=== PATIENT | female | born 2000 | race Caucasian/White ===

== ENCOUNTER 2021-02-20 14:00 | Outpatient (CLI) | payer OTHER ==
[~2021-02-20] VITALS: Ht 149.9 cm; Wt 51.7 kg
[2021-02-20 14:19] VITALS: BP 124/74
[2021-02-20] MEDS ORDERED: ACET-907 PO (14:38)
[2021-02-20] MEDS ORDERED: ACET325C5 PO (14:38)
[2021-02-20] MEDS ORDERED: PRENTAB9 PO (14:38)
[2021-02-20 15:04] VITALS: BP 106/58
== END 2021-02-20 14:45 | disposition home or self-care (01) ==
LOC: M LDO 14:00
PROVIDERS: ATTEND Obstetrics & Gynecology
DX: O26.892 Other specified pregnancy related conditions, second trimester (principal); N89.8 Other specified noninflammatory disorders of vagina; R25.2 Cramp and spasm; Z3A.25 25 weeks gestation of pregnancy
CPT/HCPCS: 59025; G0378; G0463

== ENCOUNTER 2021-03-26 19:40 | Outpatient (CLI) ==
[~2021-03-26] VITALS: Ht 149.9 cm; Wt 54.2 kg
[~2021-03-26 19:40] MED LIST: ACET-907 PO; ACET325C5 PO; PRENTAB9 PO
[2021-03-26 20:09] VITALS: BP 131/81
== END 2021-03-26 22:47 | disposition home or self-care (01) ==
LOC: M LDO 19:40
PROVIDERS: ATTEND Obstetrics & Gynecology
DX: O60.03 Preterm labor without delivery, third trimester (principal); O09.33 Supervision of pregnancy with insufficient antenatal care, third trimester; Z3A.30 30 weeks gestation of pregnancy
CPT/HCPCS: 59025; 81001; 87086; G0378; G0463

== ENCOUNTER → 2021-04-01 | Outpatient (CLI) | payer OTHER ==
[2021-04-01 12:53] LABS: BASO % 0.3 % (0.0-1.0); EOS % 0.1 % (0.0-3.0); HEMATOCRIT 38.2 % (36.0-47.0); HEMOGLOBIN 12.7 g/dl (12.0-15.5); LYMPH # 1.3 10^3/uL (1.5-5.0); LYMPH % 11.8 % (24.0-44.0); MEAN CORPUSCULAR HEMOGLOBIN 29.3 pg (27.0-33.0); MEAN CORPUSCULAR HGB CONC 33.2 g/dl (32.0-36.5); MEAN CORPUSCULAR VOLUME 88.2 fl (80.0-96.0); MONO # 0.3 10^3/uL (0.0-0.8); MONO % 2.5 % (2.0-8.0); NEUTROPHILS # 9.5 10^3/uL (1.5-8.5); NEUTROPHILS % 83.8 % (36.0-66.0); PLATELET COUNT, AUTOMATED 374 10^3/uL (150-450); RED BLOOD COUNT 4.33 10^6/uL (4.00-5.40); WHITE BLOOD COUNT 11.3 10^3/uL (4.0-10.0)
[2021-04-01 15:29] LABS: GLUCOSE CHALLENGE TEST 1 HOUR 143 MG/DL (LESS THAN 140)
[2021-04-02 11:27] LABS: HIV 1&2 SCREEN CENTAUR NEGATIVE (NEGATIVE)
== END ==
LOC: M LAB 10:36
PROVIDERS: ATTEND Obstetrics & Gynecology
DX: Z36.9 Encounter for antenatal screening, unspecified (principal); Z3A.28 28 weeks gestation of pregnancy

== ENCOUNTER 2021-05-28 12:48 | Inpatient (IN) | payer OTHER ==
[2021-05-28] VITALS (28 sets, daily range): BP systolic 91–144; BP diastolic 52–87
[~2021-05-28] VITALS: Ht 149.9 cm; Wt 57.8 kg
[2021-05-28] MEDS ORDERED: TUMS500C PO (13:08)
[2021-05-28] MEDS ORDERED: LACTATED RINGER'S 1000 ML IV STA (13:49)
[2021-05-28] MEDS ORDERED: OXYTOCIN DRIP 30 UNITS in IV 1 EA IV PRN ×4 (13:50)
[2021-05-28 14:14] LABS: HEMATOCRIT 35.9 % (36.0-47.0); HEMOGLOBIN 11.6 g/dl (12.0-15.5); MEAN CORPUSCULAR HEMOGLOBIN 26.9 pg (27.0-33.0); MEAN CORPUSCULAR HGB CONC 32.3 g/dl (32.0-36.5); MEAN CORPUSCULAR VOLUME 83.1 fl (80.0-96.0); PLATELET COUNT, AUTOMATED 335 10^3/uL (150-450); RED BLOOD COUNT 4.32 10^6/uL (4.00-5.40); WHITE BLOOD COUNT 15.7 10^3/uL (4.0-10.0)
[2021-05-28] MEDS ORDERED: FENTANYL 2MCG/ML ROPIVACAINE 0.2% IN 0.9% NACL 100ML IVBAG As Ordered ONE (14:30)
[2021-05-28] MEDS ORDERED: HOME MED LIST COMPLETE! XX SCH (16:00)
[2021-05-28] MEDS ORDERED: LACTATED RINGER'S 1000 ML IV PRN (16:20)
[2021-05-28] MEDS ORDERED: ONDANSETRON 4MG/2ML VIAL IV PRN ×2 (16:20→21:15)
[2021-05-28] MEDS ORDERED: diphenhydrAMINE 50MG/ML VIAL (J1200) IV PRN (16:20)
[2021-05-28] MEDS ORDERED: REFRIGERATOR IV KEYS XX PRN (16:20)
[2021-05-28] MEDS ORDERED: EPIDURAL COMMENT XX SCH (16:20)
[2021-05-28] MEDS ORDERED: EPIDURAL/PCA KEYS XX PRN (16:20)
[2021-05-28] MEDS ORDERED: FENTANYL/ROPIVACAINE/NACL BAG 100 ML EPIDURAL SCH (16:20)
[2021-05-28] MEDS ORDERED: NALOXONE INJ 0.4MG/1ML VIAL (J2310 PER 1MG) IV PRN (16:20)
[2021-05-28] MEDS: LR 1,000 ML IV SCH ×2 (16:28→18:36)
[2021-05-28] MEDS: ePHEDrine SULFATE 25 MG/5 ML(5MG/ML) SYRINGE IV PRN ×3 (18:53→19:01)
[2021-05-28] MEDS ORDERED: AMPICILLIN SOD 2 GM in D5W MINI-BAG PLUS 100 ML IV SCH (20:00)
[2021-05-28] MEDS ORDERED: D5W IV ONE (21:00)
[2021-05-28] MEDS ORDERED: GENTAMICIN IV ONE (21:00)
[2021-05-28 21:04] LABS: CORD GAS ABE V -8.8; CORD GAS HCO3 V 17.6 MEQ/L; CORD GAS O2 SAT V 56.7 %; CORD GAS PCO2 V 39.6 mmHg; CORD GAS PH V 7.266 UNITS; CORD GAS PO2 V 26.6 mmHg; CORD GAS SBC V 16.7 MEQ/L; CORD GAS TCO2 V 18.8 MEQ/L
[2021-05-28 21:06] LABS: CORD GAS ABE A -11.4; CORD GAS HCO3 A 17.1 MEQ/L; CORD GAS O2 SAT A 78.4 %; CORD GAS PH A 7.169 UNITS; CORD GAS PO2 A 42.8 mmHg; CORD GAS SBC A 15.3 MEQ/L; CORD GAS TCO2 A 18.5 MEQ/L
[2021-05-28] MEDS ORDERED: DIBUCAINE 1% OINTMENT 30GM TOP PRN (21:15)
[2021-05-28] MEDS ORDERED: PROMETHAZINE 25 MG TAB PO PRN (21:15)
[2021-05-28] MEDS ORDERED: RHOGAM 300 MCG (1500 IU) INJ (J2790) IM SCH (21:15)
[2021-05-28] MEDS: ACETAMINOPHEN 500 MG TAB PO SCH (21:15)
[2021-05-28] MEDS ORDERED: LR 1,000 ML IV SCH (21:15)
[2021-05-28] MEDS ORDERED: MEASLES,MUMPS,RUBELLA VACCINE INJ (MMR-II) (90707) SC SCH (21:15)
[2021-05-28] MEDS: IBUPROFEN 800 MG TAB PO SCH (22:53)
[2021-05-29] MEDS: ACETAMINOPHEN 500 MG TAB PO SCH ×5 (03:15→21:15)
[2021-05-29] MEDS: IBUPROFEN 800 MG TAB PO SCH ×3 (05:55→22:16)
[2021-05-29 06:00] VITALS: BP 111/75
[2021-05-29 07:30] LABS: HEMATOCRIT 31.8 % (36.0-47.0); HEMOGLOBIN 10.3 g/dl (12.0-15.5); MEAN CORPUSCULAR HEMOGLOBIN 27.2 pg (27.0-33.0); MEAN CORPUSCULAR HGB CONC 32.4 g/dl (32.0-36.5); MEAN CORPUSCULAR VOLUME 84.1 fl (80.0-96.0); PLATELET COUNT, AUTOMATED 297 10^3/uL (150-450); RED BLOOD COUNT 3.78 10^6/uL (4.00-5.40)
[2021-05-29 09:00] VITALS: BP 111/75
[2021-05-29] MEDS: DOCUSATE SODIUM 100MG CAPSULE PO SCH ×2 (10:17→22:16)
[2021-05-29] MEDS: PRENATAL VITAMINS CHEWABLE TABLET PO SCH (10:17)
[2021-05-29 17:59] VITALS: BP 113/72
[2021-05-30] MEDS: ACETAMINOPHEN 500 MG TAB PO SCH ×2 (03:54→09:23)
[2021-05-30 05:17] VITALS: BP 113/62
[2021-05-30] MEDS: IBUPROFEN 800 MG TAB PO SCH (06:24)
[2021-05-30] MEDS ORDERED: COLA100C5 PO (07:24)
[2021-05-30] MEDS ORDERED: IBUP80TA PO (07:24)
[2021-05-30] MEDS ORDERED: PRENCHW PO (07:24)
[2021-05-30] MEDS: PRENATAL VITAMINS CHEWABLE TABLET PO SCH (09:22)
[2021-05-30] MEDS: DOCUSATE SODIUM 100MG CAPSULE PO SCH (09:27)
== END 2021-05-30 09:30 | disposition home or self-care (01) | DRG 807 ==
LOC: M LDO 12:48 → M LDI 13:45 → M OBS 23:25
PROVIDERS: ADMIT Obstetrics & Gynecology; ATTEND Obstetrics & Gynecology
PROC: 10E0XZZ Delivery of Products of Conception, External Approach (ICD-10-PCS; principal; 2021-05-28)
DX: O41.1230 Chorioamnionitis, third trimester, not applicable or unspecified (principal); Z37.0 Single live birth; O69.82X0 Labor and delivery complicated by other cord entanglement, without compression, not applicable or unspecified; O76 Abnormality in fetal heart rate and rhythm complicating labor and delivery; Z3A.39 39 weeks gestation of pregnancy

== ENCOUNTER → 2022-03-29 | Outpatient (CLI) | payer OTHER ==
[~2022-03-29] MED LIST changes: +COLA100C5 PO; +IBUP80TA PO; +PRENCHW PO; +TUMS500C PO
== END ==
LOC: M WHC 09:29
PROVIDERS: ATTEND Advanced Practice Midwife
DX: Z34.92 Encounter for supervision of normal pregnancy, unspecified, second trimester (principal); Z3A.19 19 weeks gestation of pregnancy

== ENCOUNTER → 2022-05-04 | Outpatient (CLI) | payer OTHER | LOC: M RAD 12:36 | PROVIDERS: ATTEND Advanced Practice Midwife | DX: Z34.90 Encounter for supervision of normal pregnancy, unspecified, unspecified trimester (principal); Z3A.25 25 weeks gestation of pregnancy ==

== ENCOUNTER 2022-06-28 21:53 | Outpatient (CLI) | payer OTHER ==
[~2022-06-28] VITALS: Ht 149.9 cm; Wt 60.5 kg
[2022-06-28 22:13] VITALS: BP 109/68
[2022-06-28] MEDS ORDERED: VITA100T59 PO (22:16)
[2022-06-28] MEDS ORDERED: IRON15CH PO (22:16)
[2022-06-28] MEDS ORDERED: HOME MED LIST COMPLETE! XX SCH (22:20)
[2022-06-28 22:57] VITALS: BP 116/71
[2022-06-28] MEDS ORDERED: NITROFURANTOIN (MACROBID) 100 MG CAP PO ONE (23:15)
== END 2022-06-29 00:28 | disposition home or self-care (01) ==
LOC: M LDO 21:53
PROVIDERS: ATTEND Obstetrics & Gynecology
DX: O36.8130 Decreased fetal movements, third trimester, not applicable or unspecified (principal); Z3A.32 32 weeks gestation of pregnancy; O23.593 Infection of other part of genital tract in pregnancy, third trimester; O32.1XX0 Maternal care for breech presentation, not applicable or unspecified; Z91.040 Latex allergy status
CPT/HCPCS: 59025; 76815; 81001; 87086; G0463

== ENCOUNTER 2022-08-14 01:28 | Inpatient (IN) | payer OTHER ==
[~2022-08-14] VITALS: Ht 149.9 cm; Wt 63.7 kg
[2022-08-14] VITALS (54 sets, daily range): BP systolic 92–155; BP diastolic 52–88; O2SAT 96–97
[~2022-08-14 01:28] MED LIST changes: +IRON15CH PO; +VITA100T59 PO
[2022-08-14] MEDS ORDERED: HOME MED LIST COMPLETE! XX SCH (01:45)
[2022-08-14] MEDS ORDERED: PENICILLIN G POTASSIUM 5 MU IV 5 MU in D5W MINI-BAG PLUS 100 ML IV STA (02:08)
[2022-08-14] MEDS ORDERED: LACTATED RINGER'S 1000 ML IV STA (02:08)
[2022-08-14] MEDS ORDERED: CARBOPROST TROMETHAMINE 250 MCG/ML AMP IM PRN (02:10)
[2022-08-14] MEDS ORDERED: OXYTOCIN INJ 10UNITS/ML 1ML VIAL IM PRN (02:10)
[2022-08-14] MEDS ORDERED: TRANEXAMIC ACID INJection 1,000 MG in NS 100 ML IV PRN (02:10)
[2022-08-14] MEDS ORDERED: METHYLERGONOVINE MALEATE 0.2MG/ML 1ML VIAL IM PRN (02:10)
[2022-08-14] MEDS ORDERED: LIDOCAINE 1% MDV 20ML VIAL INFIL PRN (02:10)
[2022-08-14] MEDS ORDERED: OXYTOCIN DRIP 30 UNITS in IV 1 EA IV PRN ×6 (02:10)
[2022-08-14] MEDS ORDERED: NALBUPHINE HCL 10 MG/ML 1ML AMP IV PRN (02:15)
[2022-08-14] MEDS ORDERED: PROMETHAZINE 25MG/ML 1ML VIAL IV PRN (02:15)
[2022-08-14 02:48] LABS: BASO % 0.2 % (0.0-1.0); EOS # 0.1 10^3/uL (0.0-0.5); EOS % 0.6 % (0.0-3.0); HEMATOCRIT 40.8 % (36.0-47.0); HEMOGLOBIN 13.7 g/dl (12.0-15.5); LYMPH # 1.9 10^3/uL (1.5-5.0); LYMPH % 17.7 % (24.0-44.0); MEAN CORPUSCULAR HEMOGLOBIN 28.3 pg (27.0-33.0); MEAN CORPUSCULAR HGB CONC 33.6 g/dl (32.0-36.5); MEAN CORPUSCULAR VOLUME 84.3 fl (80.0-96.0); MONO % 8.9 % (2.0-8.0); NEUTROPHILS # 7.8 10^3/uL (1.5-8.5); NEUTROPHILS % 71.6 % (36.0-66.0); PLATELET COUNT, AUTOMATED 308 10^3/uL (150-450); RED BLOOD COUNT 4.84 10^6/uL (4.00-5.40); WHITE BLOOD COUNT 10.9 10^3/uL (4.0-10.0)
[2022-08-14] MEDS ORDERED: NALOXONE INJ 0.4MG/1ML VIAL IV PRN (03:40)
[2022-08-14] MEDS ORDERED: diphenhydrAMINE 50MG/ML VIAL IV PRN (03:40)
[2022-08-14] MEDS ORDERED: LR 500 ML IV PRN (03:40)
[2022-08-14] MEDS ORDERED: EPIDURAL/PCA KEYS XX PRN (03:40)
[2022-08-14] MEDS ORDERED: ONDANSETRON 4MG 2ML VIAL IV PRN (03:40)
[2022-08-14] MEDS: LR 1,000 ML IV SCH ×2 (03:41→11:34)
[2022-08-14] MEDS: CALCIUM CARBONATE 500 MG CHEW U/D PO PRN ×3 (04:26→11:33)
[2022-08-14] MEDS: FENTANYL/ROPIVACAINE/NACL BAG 100 ML EPIDURAL SCH ×2 (04:28→11:30)
[2022-08-14] MEDS: ePHEDrine SULFATE 25 MG/5 ML(5MG/ML) SYRINGE IVP PRN ×3 (04:45→04:55)
[2022-08-14] MEDS: PEN G POT 3,000,000 UNIT/50 ML 3,000,000 UNIT in IV 1 EA IV SCH ×2 (06:48→11:31)
[2022-08-14] MEDS ORDERED: IBUPROFEN 600MG TAB PO PRN (12:10)
[2022-08-14] MEDS ORDERED: ACETAMINOPHEN TAB 650MG DOSE (2X325MG) PO PRN (12:10)
[2022-08-14] MEDS ORDERED: METHYLERGONOVINE MALEATE 0.2 MG TAB PO PRN (12:10)
[2022-08-14] MEDS ORDERED: ACETAMINOPHEN 500 MG TAB PO PRN (12:10)
[2022-08-14] MEDS ORDERED: RHOGAM 300MCG (1500IU) INJ IM SCH (12:10)
[2022-08-14] MEDS ORDERED: ANUSOL HC CREAM 30GM TOP PRN (12:10)
[2022-08-14] MEDS ORDERED: DIBUCAINE 1% OINTMENT 30GM TOP PRN (12:10)
[2022-08-14] MEDS ORDERED: DOCUSATE SODIUM 100MG CAPSULE PO PRN (12:10)
[2022-08-14] MEDS ORDERED: OXYTOCIN DRIP 30 UNITS in IV 1 EA IV SCH ×2 (12:30→13:00)
[2022-08-14] MEDS: IBUPROFEN 800 MG TAB PO PRN (13:57)
[2022-08-14] MEDS: FAMOTIDINE 20 MG TAB PO SCH ×2 (13:57→20:09)
[2022-08-14] MEDS ORDERED: METHYLERGONOVINE MALEATE 0.2MG/ML 1ML VIAL IM ONE (14:45)
[2022-08-15 06:00] VITALS: BP 114/74; O2SAT 97
[2022-08-15 06:21] LABS: HEMATOCRIT 34.1 % (36.0-47.0); HEMOGLOBIN 11.1 g/dl (12.0-15.5); MEAN CORPUSCULAR HEMOGLOBIN 28.3 pg (27.0-33.0); MEAN CORPUSCULAR HGB CONC 32.6 g/dl (32.0-36.5); PLATELET COUNT, AUTOMATED 219 10^3/uL (150-450); RED BLOOD COUNT 3.92 10^6/uL (4.00-5.40); WHITE BLOOD COUNT 14.9 10^3/uL (4.0-10.0)
[2022-08-15] MEDS: FAMOTIDINE 20 MG TAB PO SCH (08:23)
[2022-08-15] MEDS ORDERED: PRENATAL VITAMINS CHEWABLE TABLET PO SCH (09:00)
[2022-08-15] MEDS: IBUPROFEN 800 MG TAB PO PRN (11:04)
[2022-08-16] MEDS ORDERED: MEASLES,MUMPS,RUBELLA VACCINE INJ (MMR-II) SC.IMMUN ONE (09:00)
== END 2022-08-15 16:40 | disposition home or self-care (01) | DRG 807 ==
LOC: M LDO 01:28 → M LDI 02:12 → M OBS 15:30
PROVIDERS: ADMIT Obstetrics & Gynecology; ATTEND Obstetrics & Gynecology
PROC: 10E0XZZ Delivery of Products of Conception, External Approach (ICD-10-PCS; principal; 2022-08-14)
DX: O69.82X0 Labor and delivery complicated by other cord entanglement, without compression, not applicable or unspecified (principal); Z37.0 Single live birth; O99.824 Streptococcus B carrier state complicating childbirth; Z3A.39 39 weeks gestation of pregnancy

== ENCOUNTER 2023-07-01 18:53 | Emergency (ER) | payer OTHER ==
[~2023-07-01] VITALS: Ht 149.9 cm; Wt 58.2 kg
[2023-07-01 18:54] VITALS: TEMP 97.6
[2023-07-01] MEDS: KETOROLAC 30 MG/ML 1ML VIAL IV ONE (19:33)
[2023-07-01] MEDS: ONDANSETRON 4MG 2ML VIAL IV ONE (19:33)
[2023-07-01] MEDS: NS 1,000 ML IV ONE (19:33)
[2023-07-01 19:39] LABS: BASO % 0.2 % (0.0-1.0); EOS % 0.2 % (0.0-3.0); HEMATOCRIT 44.6 % (36.0-47.0); HEMOGLOBIN 15.4 g/dl (12.0-15.5); LYMPH # 1.4 10^3/uL (1.5-5.0); LYMPH % 14.7 % (24.0-44.0); MEAN CORPUSCULAR HEMOGLOBIN 29.5 pg (27.0-33.0); MEAN CORPUSCULAR HGB CONC 34.5 g/dl (32.0-36.5); MEAN CORPUSCULAR VOLUME 85.4 fl (80.0-96.0); MONO # 0.3 10^3/uL (0.0-0.8); MONO % 3.3 % (2.0-8.0); NEUTROPHILS # 7.9 10^3/uL (1.5-8.5); NEUTROPHILS % 81.4 % (36.0-66.0); PLATELET COUNT, AUTOMATED 386 10^3/uL (150-450); RED BLOOD COUNT 5.22 10^6/uL (4.00-5.40); WHITE BLOOD COUNT 9.7 10^3/uL (4.0-10.0)
[2023-07-01 20:06] LABS: HCG, SERUM QUALITATIVE NEGATIVE (NEGATIVE); LIPASE 26 U/L (12-53)
[2023-07-01 20:08] LABS: ALBUMIN 4.1 G/DL (3.2-5.2); ALKALINE PHOSPHATASE 64 U/L (46-116); ALT/SGPT 18 U/L (7.0-40); AST/SGOT 14 U/L (<34); BILIRUBIN,DIRECT 0.2 MG/DL (<0.4); BILIRUBIN,TOTAL 0.6 MG/DL (0.3-1.2); BLOOD UREA NITROGEN 12 MG/DL (9-23); CALCIUM LEVEL 9.3 MG/DL (8.5-10.1); CARBON DIOXIDE LEVEL 25 MMOL/L (20-31); CHLORIDE LEVEL 109 MMOL/L (98-107); CREATININE FOR GFR 0.58 MG/DL (0.55-1.30); GLOMERULAR FILTRATION RATE > 60.0 (>60); GLUCOSE, FASTING 87 MG/DL (60-100); SODIUM LEVEL 143 MMOL/L (136-145); TOTAL PROTEIN 6.9 G/DL (5.7-8.2)
[2023-07-01] MEDS: METOCLOPRAMIDE INJ 10MG/2ML VIAL IV ONE (22:12)
[2023-07-02] MEDS ORDERED: ONDA4TAB6 PO (00:04)
[2023-07-02 00:12] VITALS: BP 110/68; O2SAT 100
== END 2023-07-02 00:14 | disposition home or self-care (01) ==
LOC: M ED 18:53
DX: R11.2 Nausea with vomiting, unspecified (principal); N94.6 Dysmenorrhea, unspecified; R10.2 Pelvic and perineal pain; Z91.040 Latex allergy status; Z79.83 Long term (current) use of bisphosphonates
CPT/HCPCS: 74018; 76830; 76856; 80048; 80076; 81001; 83690; 84703; 85025; 87086; 93976; 96361; 96374; 96375; 99284; J1885; J2405; J2765

== ENCOUNTER 2023-07-05 15:49 | Emergency (ER) | payer OTHER ==
[~2023-07-05] VITALS: Ht 149.9 cm; Wt 59.2 kg
[~2023-07-05 15:49] MED LIST changes: +ONDA4TAB6 PO
[2023-07-05 17:33] LABS: BILIRUBIN,DIRECT 0.2 MG/DL (<0.4); BILIRUBIN,TOTAL 0.5 MG/DL (0.3-1.2); TOTAL PROTEIN 6.9 G/DL (5.7-8.2)
[2023-07-05 17:35] LABS: BASO % 0.6 % (0.0-1.0); EOS # 0.1 10^3/uL (0.0-0.5); EOS % 1.8 % (0.0-3.0); HEMATOCRIT 44.3 % (36.0-47.0); HEMOGLOBIN 15.4 g/dl (12.0-15.5); LYMPH % 29.8 % (24.0-44.0); MEAN CORPUSCULAR HEMOGLOBIN 30.2 pg (27.0-33.0); MEAN CORPUSCULAR HGB CONC 34.8 g/dl (32.0-36.5); MEAN CORPUSCULAR VOLUME 86.9 fl (80.0-96.0); MONO # 0.4 10^3/uL (0.0-0.8); MONO % 6.1 % (2.0-8.0); NEUTROPHILS # 4.2 10^3/uL (1.5-8.5); NEUTROPHILS % 61.4 % (36.0-66.0); PLATELET COUNT, AUTOMATED 408 10^3/uL (150-450); WHITE BLOOD COUNT 6.8 10^3/uL (4.0-10.0)
[2023-07-05] MEDS: ACETAMINOPHEN 500 MG TAB PO ONE (19:19)
[2023-07-05] MEDS: KETOROLAC 30 MG/ML 1ML VIAL IV ONE (19:20)
[2023-07-05] MEDS ORDERED: NITR-67 PO (19:36)
[2023-07-05] MEDS: NITROFURANTOIN (MACROBID) 100 MG CAP PO ONE (19:45)
[2023-07-05 19:48] VITALS: BP 115/77; TEMP 97.6; O2SAT 99
== END 2023-07-05 20:01 | disposition home or self-care (01) ==
LOC: M ED 15:49
DX: N39.0 Urinary tract infection, site not specified (principal); N83.209 Unspecified ovarian cyst, unspecified side; Z91.040 Latex allergy status; Z79.83 Long term (current) use of bisphosphonates; Z79.2 Long term (current) use of antibiotics
CPT/HCPCS: 80047; 80076; 81001; 83690; 84702; 85025; 87088; 96374; 99284; J1885

== ENCOUNTER 2023-07-16 10:34 | Emergency (ER) | payer OTHER ==
[~2023-07-16] VITALS: Ht 149.9 cm; Wt 57.9 kg
[~2023-07-16 10:34] MED LIST changes: +NITR-67 PO
[2023-07-16 11:37] LABS: BASO % 0.3 % (0.0-1.0); EOS # 0.1 10^3/uL (0.0-0.5); EOS % 0.8 % (0.0-3.0); HEMATOCRIT 42.6 % (36.0-47.0); HEMOGLOBIN 14.7 g/dl (12.0-15.5); LYMPH # 1.3 10^3/uL (1.5-5.0); LYMPH % 14.7 % (24.0-44.0); MEAN CORPUSCULAR HEMOGLOBIN 29.6 pg (27.0-33.0); MEAN CORPUSCULAR HGB CONC 34.5 g/dl (32.0-36.5); MEAN CORPUSCULAR VOLUME 85.9 fl (80.0-96.0); MONO # 0.5 10^3/uL (0.0-0.8); MONO % 5.3 % (2.0-8.0); NEUTROPHILS # 7.2 10^3/uL (1.5-8.5); NEUTROPHILS % 78.6 % (36.0-66.0); PLATELET COUNT, AUTOMATED 341 10^3/uL (150-450); RED BLOOD COUNT 4.96 10^6/uL (4.00-5.40); WHITE BLOOD COUNT 9.1 10^3/uL (4.0-10.0)
[2023-07-16 12:32] LABS: ALKALINE PHOSPHATASE 63 U/L (46-116); ALT/SGPT 20 U/L (7.0-40); AST/SGOT 14 U/L (<34); BILIRUBIN,DIRECT 0.2 MG/DL (<0.4); BILIRUBIN,TOTAL 0.7 MG/DL (0.3-1.2); BLOOD UREA NITROGEN 7 MG/DL (9-23); CALCIUM LEVEL 9.5 MG/DL (8.5-10.1); CARBON DIOXIDE LEVEL 28 MMOL/L (20-31); CHLORIDE LEVEL 107 MMOL/L (98-107); CREATININE FOR GFR 0.62 MG/DL (0.55-1.30); GLOMERULAR FILTRATION RATE > 60.0 (>60); GLUCOSE, FASTING 101 MG/DL (60-100); LIPASE 28 U/L (12-53); POTASSIUM SERUM 4.2 MMOL/L (3.5-5.1); SODIUM LEVEL 141 MMOL/L (136-145); TOTAL PROTEIN 6.7 G/DL (5.7-8.2)
[2023-07-16] MEDS: NS 1,000 ML IV ONE (12:48)
[2023-07-16] MEDS: ONDANSETRON 4MG 2ML VIAL IV ONE (12:49)
[2023-07-16 12:56] LABS: HCG, SERUM QUALITATIVE NEGATIVE (NEGATIVE)
[2023-07-16] MEDS: KETOROLAC 30 MG/ML 1ML VIAL IV ONE (14:27)
[2023-07-16] MEDS ORDERED: OMEP40CA4 PO (14:33)
[2023-07-16] MEDS ORDERED: ONDA4TAB6 PO (14:34)
[2023-07-16] MEDS: diphenhydrAMINE 12.5MG/5ML ELIXIR UDC PO ONE (14:35)
[2023-07-16] MEDS ORDERED: IBUP-1022 PO (14:36)
[2023-07-16 14:40] VITALS: BP 106/66; TEMP 96.2; O2SAT 98
== END 2023-07-16 14:48 | disposition home or self-care (01) ==
LOC: M ED 10:34
DX: K29.70 Gastritis, unspecified, without bleeding (principal); K21.9 Gastro-esophageal reflux disease without esophagitis; R11.2 Nausea with vomiting, unspecified; Z91.040 Latex allergy status; Z79.1 Long term (current) use of non-steroidal anti-inflammatories (NSAID); Z79.899 Other long term (current) drug therapy
CPT/HCPCS: 74176; 80048; 80076; 83690; 84703; 85025; 96361; 96374; 96375; 99284; J1885; J2405

== ENCOUNTER 2023-11-29 21:09 | Emergency (ER) | payer OTHER ==
[~2023-11-29] VITALS: Ht 149.9 cm; Wt 57.5 kg
[~2023-11-29 21:09] MED LIST changes: +IBUP-1022 PO; +OMEP40CA4 PO; +ONDA-282 PO; -ONDA4TAB6 PO
[2023-11-30 02:03] VITALS: BP 117/80; TEMP 98.6; O2SAT 99
== END 2023-11-30 03:30 | disposition left against medical advice (07) ==
LOC: M ED 21:09
DX: Z53.21 Procedure and treatment not carried out due to patient leaving prior to being seen by health care provider (principal)

== ENCOUNTER 2024-03-20 17:38 | Outpatient (CLI) | payer OTHER ==
[~2024-03-20] VITALS: Ht 149.9 cm; Wt 58.9 kg
[2024-03-20 17:55] VITALS: BP 114/69
[2024-03-20 19:15] VITALS: BP 108/64
[2024-03-20 19:20] LABS: KETONE, URINE AUTO RFX TRACE mg/dL (NEGATIVE); LEUKOCYTE ESTERASE UR AUTO RFX 3+ (NEGATIVE); MUCUS, URINE RFX SMALL (NEGATIVE); NITRITE, URINE AUTO RFX NEGATIVE (NEGATIVE); RBC, URINE AUTO RFX 3 /HPF (0-3); SQUAM EPITHELIAL CELL UR AURFX 22 /HPF (0-6); WBC, URINE AUTO RFX 18 /HPF (0-3)
== END 2024-03-20 19:25 | disposition home or self-care (01) ==
LOC: M LDO 17:38
PROVIDERS: ATTEND Advanced Practice Midwife
DX: O26.892 Other specified pregnancy related conditions, second trimester (principal); N89.8 Other specified noninflammatory disorders of vagina; Z3A.24 24 weeks gestation of pregnancy
CPT/HCPCS: 59025; 81001; 87086; G0463

== ENCOUNTER 2024-05-06 17:52 | Outpatient (CLI) | payer OTHER ==
[~2024-05-06] VITALS: Ht 149.9 cm; Wt 58.1 kg
[2024-05-06 18:07] VITALS: BP 113/72
[2024-05-06] MEDS: ONDANSETRON 4MG ORAL DISINTEGRATING TAB PO ONE (18:54)
== END 2024-05-06 20:00 | disposition home or self-care (01) ==
LOC: M LDO 17:52
PROVIDERS: ATTEND Advanced Practice Midwife
DX: O99.613 Diseases of the digestive system complicating pregnancy, third trimester (principal); O99.353 Diseases of the nervous system complicating pregnancy, third trimester; O09.299 Supervision of pregnancy with other poor reproductive or obstetric history, unspecified trimester; K52.9 Noninfective gastroenteritis and colitis, unspecified; G43.809 Other migraine, not intractable, without status migrainosus; Z88.5 Allergy status to narcotic agent; Z91.040 Latex allergy status; K42.9 Umbilical hernia without obstruction or gangrene; Z3A.30 30 weeks gestation of pregnancy
CPT/HCPCS: 59025; G0463

== ENCOUNTER 2024-06-07 19:34 | Outpatient (CLI) | payer OTHER ==
[~2024-06-07] VITALS: Ht 149.9 cm; Wt 62.4 kg
[2024-06-07 19:46] VITALS: BP 112/68
[2024-06-07] MEDS: LR 1,000 ML IV ONE (21:06)
[2024-06-07] MEDS: LR 1,000 ML IV SCH (21:07)
[2024-06-07 22:06] VITALS: BP 106/62
== END 2024-06-07 22:08 | disposition home or self-care (01) ==
LOC: M LDO 19:34
PROVIDERS: ATTEND Advanced Practice Midwife
DX: O47.03 False labor before 37 completed weeks of gestation, third trimester (principal); Z36.85 Encounter for antenatal screening for Streptococcus B; Z3A.35 35 weeks gestation of pregnancy
CPT/HCPCS: 59025; 87081; 96360; G0463

== ENCOUNTER 2024-07-01 11:27 | Outpatient (CLI) | payer OTHER ==
[~2024-07-01] VITALS: Ht 149.9 cm; Wt 62.1 kg
[2024-07-01 11:45] VITALS: BP 118/80
[2024-07-01 14:57] VITALS: BP 110/68
== END 2024-07-01 16:00 | disposition home or self-care (01) ==
LOC: M LDO 11:27
PROVIDERS: ATTEND Advanced Practice Midwife
DX: O47.1 False labor at or after 37 completed weeks of gestation (principal); O09.33 Supervision of pregnancy with insufficient antenatal care, third trimester; Z3A.38 38 weeks gestation of pregnancy
CPT/HCPCS: 59025; G0463

== ENCOUNTER 2024-07-03 14:20 | Inpatient (IN) | payer OTHER ==
[2024-07-03] VITALS (21 sets, daily range): BP systolic 95–131; BP diastolic 55–84; O2SAT 99
[~2024-07-03] VITALS: Ht 149.9 cm; Wt 62.6 kg
[2024-07-03] MEDS ORDERED: METHYLERGONOVINE MALEATE 0.2MG/ML 1ML VIAL IM PRN (15:00)
[2024-07-03] MEDS ORDERED: LIDOCAINE 1% MDV 20ML VIAL INFIL PRN (15:00)
[2024-07-03] MEDS ORDERED: CARBOPROST TROMETHAMINE 250 MCG/ML AMP IM PRN (15:00)
[2024-07-03] MEDS ORDERED: OXYTOCIN INJ 10UNITS/ML 1ML VIAL IM PRN (15:00)
[2024-07-03] MEDS ORDERED: OXYTOCIN DRIP 30 UNITS in IV 1 EA IV PRN (15:00)
[2024-07-03 16:02] LABS: HEMATOCRIT 36.7 % (36.0-47.0); HEMOGLOBIN 11.8 g/dl (12.0-15.5); MEAN CORPUSCULAR HGB CONC 32.2 g/dl (32.0-36.5); PLATELET COUNT, AUTOMATED 354 10^3/uL (150-450); RED BLOOD COUNT 4.53 10^6/uL (4.00-5.40); WHITE BLOOD COUNT 12.2 10^3/uL (4.0-10.0)
[2024-07-03] MEDS ORDERED: LR 500 ML IV PRN (16:05)
[2024-07-03] MEDS ORDERED: diphenhydrAMINE 50MG/ML VIAL IV PRN (16:05)
[2024-07-03] MEDS ORDERED: ePHEDrine SULFATE 25 MG/5 ML(5MG/ML) SYRINGE IVP PRN (16:05)
[2024-07-03] MEDS ORDERED: ONDANSETRON 4MG 2ML VIAL IV PRN ×2 (16:05→18:55)
[2024-07-03] MEDS ORDERED: NALOXONE INJ 0.4MG/1ML VIAL IV PRN (16:05)
[2024-07-03] MEDS ORDERED: EPIDURAL/PCA KEYS XX PRN (16:05)
[2024-07-03] MEDS: LACTATED RINGER'S 1000 ML IV STA (16:33)
[2024-07-03] MEDS: LR 1,000 ML IV SCH (16:35)
[2024-07-03] MEDS: PROMETHAZINE 25MG/ML 1ML VIAL IV ONE (16:38)
[2024-07-03] MEDS: BUTORPHANOL 2 MG/ML 1ML VIAL IV ONE (16:38)
[2024-07-03] MEDS: FENTANYL/ROPIVACAINE/NACL BAG 100 ML EPIDURAL SCH (16:38)
[2024-07-03 16:59] LABS: HIV 1&2 SCREEN NEGATIVE (NEGATIVE)
[2024-07-03 17:06] LABS: HEPATITIS C VIRUS ABY INDEX 0.02 INDEX (<0.8)
[2024-07-03] MEDS: TRANEXAMIC ACID INJection 1,000 MG in NS 100 ML IV PRN (18:36)
[2024-07-03] MEDS ORDERED: DIBUCAINE 1% OINTMENT 30GM TOP PRN (18:55)
[2024-07-03] MEDS ORDERED: DOCUSATE SODIUM 100MG CAPSULE PO PRN (18:55)
[2024-07-03] MEDS ORDERED: IBUPROFEN 600MG TAB PO PRN (18:55)
[2024-07-03] MEDS ORDERED: RHOGAM 300MCG (1500IU) INJ IM SCH (18:55)
[2024-07-03] MEDS ORDERED: ACETAMINOPHEN 325 MG TAB PO PRN (18:55)
[2024-07-03] MEDS ORDERED: METHYLERGONOVINE MALEATE 0.2 MG TAB PO PRN (18:55)
[2024-07-03] MEDS: IBUPROFEN 800 MG TAB PO PRN (22:14)
[2024-07-04] MEDS: ACETAMINOPHEN 500 MG TAB PO PRN (01:38)
[2024-07-04 06:00] VITALS: BP 112/70; O2SAT 99
[2024-07-04] MEDS: PRENATAL VITAMINS CHEWABLE TABLET PO SCH (08:07)
[2024-07-04 17:33] VITALS: BP 127/81
[2024-07-04 17:34] VITALS: BP 123/73
[2024-07-04 17:35] VITALS: BP 125/84
[2024-07-04 17:36] VITALS: BP 128/80
[2024-07-04 22:08] VITALS: BP 134/82; O2SAT 99
[2024-07-05 05:54] VITALS: BP 118/83; O2SAT 100
[2024-07-05] MEDS: MEASLES,MUMPS,RUBELLA VACCINE INJ (MMR-II) SC.IMMUN ONE (11:24)
== END 2024-07-05 11:42 | disposition home or self-care (01) | DRG 807 ==
LOC: M LDO 14:20 → M LDI 15:04 → M OBS 20:15
PROVIDERS: ADMIT Advanced Practice Midwife; ATTEND Advanced Practice Midwife
PROC: 10E0XZZ Delivery of Products of Conception, External Approach (ICD-10-PCS; principal; 2024-07-03)
PROC: 10907ZC Drainage of Amniotic Fluid, Therapeutic from Products of Conception, Via Natural or Artificial Opening (ICD-10-PCS; 2024-07-03)
DX: O69.1XX0 Labor and delivery complicated by cord around neck, with compression, not applicable or unspecified (principal); Z37.0 Single live birth; Z3A.39 39 weeks gestation of pregnancy; O32.6XX0 Maternal care for compound presentation, not applicable or unspecified; O09.33 Supervision of pregnancy with insufficient antenatal care, third trimester